=== PATIENT | male | born 1980 | race Caucasian/White ===

== ENCOUNTER 2021-06-05 06:53 | Observation (INO) | payer OTHER ==
[2021-06-05] MEDS ORDERED: SODIUM CHLORIDE 0.9% 1000 ML INFUS.BAG IV ONE ×2 (07:21→08:28)
[2021-06-05] MEDS ORDERED: METOCLOPRAMIDE HCL INJECTION 10 MG/2 ML VIAL IVPUSH ONE (07:22)
[2021-06-05] MEDS ORDERED: METOCLOPRAMIDE HCL INJECTION 10 MG/2 ML VIAL ONE (07:32)
[2021-06-05 08:24] LABS: ALBUMIN 4.2 g/dl (3.4-5.0); BILIRUBIN,TOTAL 0.4 mg/dl (0.2-1); CREATININE 1.2 mg/dl (0.55-1.3); TOT PROT 6.1 g/dl (6.4-8.2)
[2021-06-05 09:00] LABS: ACTIVATED PTT 26.8 SECONDS (25.2-36.5)
[2021-06-05 09:04] LABS: INR 0.99 (0.83-1.09)
[2021-06-05 09:20] LABS: BASO % 1.1 % (0-2.0); EOS % 2.3 % (0-4.5); HEMOGLOBIN 14.4 GM/dL (11.7-16.9); LYMPH % 28.3 % (8-40); MCH 30.6 pg (25.7-33.7); MCHC 33.5 g/dl (32.0-35.9); MEAN CELL VOLUME 91.4 fl (80-96); MEAN PLT VOLUME 8.4 fl (7.5-11.1); MONO % 9.8 % (3.8-10.2); NEUT % 58.5 % (42.8-82.8); PLATELET COUNT 257 10^3/uL (134-434)
[2021-06-05 13:19] LABS: COCAINE, UR NEGATIVE (NEGATIVE); OPIATES, URI NEGATIVE (NEGATIVE); PHENCYCLIDINE,URINE NEGATIVE (NEGATIVE); URINE BARBITURATES NEGATIVE (NEGATIVE)
[2021-06-05] MEDS: SODIUM CHLORIDE 1,000 ML IV SCH (13:50)
[2021-06-05 13:54] LABS: METHADONE, UR NEGATIVE (NEGATIVE); URINE AMPHETAMINES NEGATIVE (NEGATIVE); URINE BENZODIAZEPINES NEGATIVE (NEGATIVE)
[2021-06-05 16:23] VITALS: BMI 29.6
[2021-06-06] MEDS: ENOXAPARIN NA (PORCINE) 40 MG/0.4 ML DISP.SYRIN SQ SCH (09:35)
[2021-06-06] MEDS: SODIUM CHLORIDE 1,000 ML IV SCH (13:00)
[2021-06-07] MEDS ORDERED: ACETAMINOPHEN 325 MG TABLET (FP) ONE (01:49)
[2021-06-07] MEDS: ENOXAPARIN NA (PORCINE) 40 MG/0.4 ML DISP.SYRIN SQ SCH (10:58)
[2021-06-07 11:01] VITALS: BP 132/75; PULSE 52; TEMP 98.2
== END 2021-06-07 15:14 | disposition home or self-care (01) ==
LOC: FER 06:53 → FM/S 11:08
PROVIDERS: ATTEND Nurse Practitioner Acute Care
PROC: 3E023GC Introduction of Other Therapeutic Substance into Muscle, Percutaneous Approach (ICD-10-PCS; principal; 2021-06-05)
PROC: 3E0337Z Introduction of Electrolytic and Water Balance Substance into Peripheral Vein, Percutaneous Approach (ICD-10-PCS; 2021-06-05)
PROC: 3E033GC Introduction of Other Therapeutic Substance into Peripheral Vein, Percutaneous Approach (ICD-10-PCS; 2021-06-05)
DX: R55 Syncope and collapse (principal); R00.2 Palpitations; W18.39XA Other fall on same level, initial encounter; Y93.89 Activity, other specified; Y92.002 Bathroom of unspecified non-institutional (private) residence as the place of occurrence of the external cause
CPT/HCPCS: 36415; 70450-TC; 71045-TC-FY; 80053; 80307; 81003; 82550; 82553; 82607; 83735; 84436; 84439; 84443; 84479; 84484; 85025; 85610; 85730; 93005; 93306-TC; 99285-25; C9803; G0378; G0480; U0003; U0005